=== PATIENT | female | born 1940 | race Caucasian/White ===

== ENCOUNTER 2018-01-22 11:16 | Emergency (ER) | payer MEDICARE, OTHER ==
[~2018-01-22 11:16] MED LIST: BENI40TA30 PO; CARV12.52 PO; LEXA10TA PO; OMEP20TA39 PO; PLAV75TA PO; SYNT125T PO
[2018-01-22 11:18] VITALS: BP 146/67; PULSE 75; RESP 16; TEMP 98.2; O2SAT 95
--- NOTE | 2018-01-22 12:00 | RADRPT ---
EXAM DATE/TIME: 01/22/2018 11:52 [facility] COMPARISON: CHEST PA & LAT, December 18, 2015, 10:57. INDICATIONS : Short of breath, jaw pain. MEDICAL HISTORY : Cardiovascular disease. Hypertension diabetes SURGICAL HISTORY : None. ENCOUNTER: Initial ACUITY: 1 day PAIN SCORE: 0/10 LOCATION: Bilateral chest FINDINGS: PA and lateral views of the chest demonstrate the lungs to be symmetrically aerated without evidence of mass, infiltrate or effusion. The cardiomediastinal contours are unremarkable. Osseous structure s are intact. CONCLUSION: The lungs are clear. Ming Flanagan MD on January 22, 2018 at 11:58 Board Certified Radiologist. This report was verified electronically.
[2018-01-22 12:22] LABS: AUTOMATED NEUTROPHIL # 6.6 TH/MM3 (1.8-7.7); BASOPHIL # 0.1 TH/MM3 (0-0.2); BASOPHIL % 0.6 % (0.0-2.0); EOSINOPHIL # 0.2 TH/MM3 (0-0.4); EOSINOPHIL % 2.8 % (0.0-4.0); HEMATOCRIT 39.6 % (35.0-46.0); HEMOGLOBIN 13.3 GM/DL (11.6-15.3); LYMPH % 16.2 % (9.0-44.0); LYMPHOCYTE # 1.4 TH/MM3 (1.0-4.8); MEAN CELL VOLUME 78.1 FL (80.0-100.0); MEAN CORPUSCULAR HEMOGLOBIN 26.3 PG (27.0-34.0); MEAN CORPUSCULAR HGB CONC 33.6 % (32.0-36.0); MEAN PLATELET VOLUME 7.6 FL (7.0-11.0); MONO % 5.1 % (0.0-8.0); MONOCYTE # 0.5 TH/MM3 (0-0.9); NEUT % 75.3 % (16.0-70.0); PLATELET COUNT 307 TH/MM3 (150-450); RED BLOOD COUNT 5.07 MIL/MM3 (4.00-5.30); WHITE BLOOD COUNT 8.7 TH/MM3 (4.0-11.0)
--- NOTE | 2018-01-22 12:31 | PD ---
HPI Chief Complaint: Respiratory Symptoms Time Seen by Provider: 12:07 Travel History International Travel<30 days: No Contact w/Intl Traveler<30days: No Traveled to known affect area: No History of Present Illness HPI This patient complains of numbness in the right side of her face. Duration 12 hours. Symptoms come and go. no Muscle weakness or headache or confusion or fever or head injury. She has some atypical chest symptoms in the sternal region. Symptoms are not exertional. They are affected by positional change. At some minor dyspnea also. She admittedly is very anxious. She is on anxiety medication. She takes Plavix daily. She said this was started after she had a spell of passing out Severity of symptoms is mild. No alleviating factors. 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 ) Psychiatric: No Respiratory: No Myocardial Infarction: No Thyroid Disease: Yes (THYROIDECTOMY) Ulcer: No Past Surgical History AICD: No Cholecystectomy: Yes Coronary Artery Bypass Graft: No Hysterectomy: Yes Joint Replacement: Yes (bilateral knee total arthroplasty x 2) Pacemaker: No Other Surgery: Yes (THYROIDECTOMY) Social History Alcohol Use: No Tobacco Use: No Substance Use: No Allergies-Medications (Allergen,Severity, Reaction): Coded Allergies: *MDRO Multi-Drug Resistant Organism (Verified Adverse Reaction, Unknown, ) MRSA (wound) 2005 Reported Meds & Prescriptions Reported Meds & Active Scripts Active Reported Hm Omeprazole (Omeprazole) 20 Mg Tab 20 Mg PO DAILY Carvedilol 12.5 mg (Carvedilol) 12.5 Mg Tab 1 Tab PO BID Lexapro (Escitalopram Oxalate) 10 Mg Tab 10 Mg PO DAILY Synthroid 125 mcg (Levothyroxine Sodium) 125 Mcg Tab 112 Mcg PO DAILY Plavix (Clopidogrel Bisulfate) 75 Mg Tab 75 Mg PO DAILY Benicar (Olmesartan) 40 Mg Tab 40 Mg PO DAILY Review of Systems General / Constitutional: No: Fever Eyes: No: Visual changes HENT: No: Headaches Cardiovascular: Positive: Chest Pain or Discomfort Respiratory: Positive: Shortness of Breath Gastrointestinal: No: Abdominal Pain Genitourinary: No: Dysuria Musculoskeletal: No: Pain Skin: No Rash Neurologic: Positive: Paresthesia, Sensory Disturbance, No: Weakness Psychiatric: No: Depression Endocrine: No: Polydipsia Hematologic/Lymphatic: No: Easy Bruising Physical Exam Narrative GENERAL: Well-nourished, well-developed patient in no apparent distress. SKIN: Focused skin assessment reveals no rash and nodules. Skin is Warm and dry. HEAD: Atraumatic. Normocephalic. EYES: Pupils equal and round. No scleral icterus. No injection or drainage. ENT: No nasal bleeding or discharge. Mucous membranes pink and moist. NECK: Trachea midline. No JVD. CARDIOVASCULAR: Regular rate and rhythm. No murmur appreciated. RESPIRATORY: No accessory muscle use. Clear to auscultation. Breath sounds equal bilaterally. GASTROINTESTINAL: Abdomen soft, non-tender, nondistended. Hepatic and splenic margins not palpable. MUSCULOSKELETAL: No obvious deformities. No clubbing. No cyanosis. No edema. NEUROLOGICAL: Awake and alert. No obvious cranial nerve deficits. Motor grossly within normal limits. Normal speech. Patient has subjective sensation throughout the right side of face PSYCHIATRIC: Appropriate mood and affect; insight and judgment normal. Data Data Last Documented VS Vital Signs Date Time Temp Pulse Resp B/P (MAP) Pulse Ox O2 Delivery O2 Flow Rate FiO2 01/22/18 11:18 98.2 75 16 146/67 (93) 95 Orders Orders Electrocardiogram (01/22/18 11:26) Basic Metabolic Panel (Bmp) (01/22/18 11:26) Ckmb (Isoenzyme) Profile (01/22/18 11:26) Complete Blood Count With Diff (01/22/18 11:26) Magnesium (Mg) (01/22/18 11:26) Prothrombin Time / Inr (Pt) (01/22/18 11:26) Act Partial Throm Time (Ptt) (01/22/18 11:26) Troponin I (01/22/18 11:26) Lipase (01/22/18 11:26) Chest, Pa & Lat (01/22/18 11:26) Ct Brain W/O Iv Contrast(Rout) (01/22/18 ) Labs Laboratory Tests Test 01/22/18 11:36 White Blood Count 8.7 TH/MM3 Red Blood Count 5.07 MIL/MM3 Hemoglobin 13.3 GM/DL Hematocrit 39.6 % Mean Corpuscular Volume 78.1 FL Mean Corpuscular Hemoglobin 26.3 PG Mean Corpuscular Hemoglobin Concent 33.6 % Red Cell Distribution Width 16.0 % Platelet Count 307 TH/MM3 Mean Platelet Volume 7.6 FL Neutrophils (%) (Auto) 75.3 % Lymphocytes (%) (Auto) 16.2 % Monocytes (%) (Auto) 5.1 % Eosinophils (%) (Auto) 2.8 % Basophils (%) (Auto) 0.6 % Neutrophils # (Auto) 6.6 TH/MM3 Lymphocytes # (Auto) 1.4 TH/MM3 Monocytes # (Auto) 0.5 TH/MM3 Eosinophils # (Auto) 0.2 TH/MM3 Basophils # (Auto) 0.1 TH/MM3 CBC Comment DIFF FINAL Differential Comment Prothrombin Time 10.7 SEC Prothromb Time International Ratio 1.1 RATIO Activated Partial Thromboplast Time 25.6 SEC Blood Urea Nitrogen 13 MG/DL Creatinine 0.67 MG/DL Random Glucose 143 MG/DL Calcium Level 9.8 MG/DL Magnesium Level 1.4 MG/DL Sodium Level 135 MEQ/L Potassium Level 4.1 MEQ/L Chloride Level 102 MEQ/L Carbon Dioxide Level 27.4 MEQ/L Anion Gap 6 MEQ/L Estimat Glomerular Filtration Rate 85 ML/MIN Total Creatine Kinase 37 U/L Troponin I LESS THAN 0.02 NG/ML Lipase 118 U/L [facility] Medical Decision Making Medical Screen Exam Complete: Yes Emergency Medical Condition: Yes Medical Record Reviewed: Yes Differential Diagnosis ACS, musculoskeletal chest pain, anxiety, TIA Narrative Course I have reviewed the patient's electronic medical record. Her chest x-ray is normal I reviewed her EKG which shows sinus rhythm without ACS changes IV placed CBC is normal metabolic profile is normal LFT's are normal lipase is normal ck is normal trop I is normal This patient has an atypical presentation with a lot of vague complaints. I do not see evidence of anything emergent happening. No suspicion of ACS or acute stroke. Brain CT is normal Patient has appointment with her primary care physician in exactly 80 minutes I believe she is stable to follow-up with her doctor And build upon what we have started here Diagnosis Primary Impression: Right facial numbness Additional Impressions: Chest pain Qualified Codes: R07.9 - Chest pain, unspecified Shortness of breath Anxious mood Additional Instructions: The patient was advised to follow up with their physician and return if they worsen. For this Med/Other Pt SpecificInfo: Other Disposition: 01 DISCHARGE HOME Condition: Stable Poncho Kim MD Jan 22, 2018 12:31
[2018-01-22 12:34] LABS: INTERNATIONAL NORMALIZED RATIO 1.1 RATIO; PROTHROMBIN TIME - PATIENT 10.7 SEC (9.8-11.6)
[2018-01-22 12:41] LABS: BICARBONATE 27.4 MEQ/L (21.0-32.0); BLOOD UREA NITROGEN 13 MG/DL (7-18); CALCIUM 9.8 MG/DL (8.5-10.1); CHLORIDE 102 MEQ/L (98-107); CREATININE 0.67 MG/DL (0.50-1.00); GLOMERULAR FILTRATION RATE 85 ML/MIN (>89); GLUCOSE,RANDOM 143 MG/DL (74-106); MAGNESIUM 1.4 MG/DL (1.5-2.5); SODIUM (NA) 135 MEQ/L (136-145)
[2018-01-22 12:46] LABS: TROPONIN I LESS THAN 0.02 NG/ML (0.02-0.05)
--- NOTE | 2018-01-22 13:05 | RADRPT ---
EXAM DATE/TIME: 01/22/2018 12:50 [facility] COMPARISON: CT BRAIN W/O CONTRAST, February 04, 2016, 9:54. INDICATIONS : Right facial numbness. RADIATION DOSE: 42.50 CTDIvol (mGy) MEDICAL HISTORY : Cardiovascular disease. Hypertension. SURGICAL HISTORY : Cholecystectomy. Thyroidectomy. ENCOUNTER: Initial ACUITY: 1 day PAIN SCALE: 0/10 LOCATION: cranial TECHNIQUE: Multiple contiguous axial images were obtained of the head. Using automated exposure control and adj ustment of the mA and/or kV according to patient size, radiation dose was kept as low as reasonably a chievable to obtain optimal diagnostic quality images. DICOM format image data is available electro nically for review and comparison. FINDINGS: There is patchy mild diminished attenuation deep white matter structures which appears grossly stable . There is no evidence of intracranial mass or hemorrhage. There is nothing to suggest acute infarcti on. The ventricles are symmetric and normal. Extracranial structures are benign and intact. CONCLUSION: Stable brain. No acute findings. Edmundo Nazario MD on January 22, 2018 at 13:01 Board Certified Radiologist. This report was verified electronically.
--- NOTE | 2018-01-22 14:57 | EKG ---
Date Performed: 01/22/2018 Time Performed: 11:32:48 PTAGE: 77 years EKG: Sinus rhythm POSSIBLE LEFT ATRIAL ENLARGEMENT MARKED LEFT AXIS DEVIATION MINIMAL ST DEPRESSION ABNORMAL ECG PREVIOUS TRACING : 04/08/2016 11.39 DOCTOR: Grabiel Sanders Interpretating Date/Time 01/22/2018 14:56:08
== END 2018-01-22 14:55 | disposition home or self-care (01) ==
LOC: NEPC 11:16
DX: R20.0 Anesthesia of skin (principal); R07.9 Chest pain, unspecified; R06.02 Shortness of breath; F41.9 Anxiety disorder, unspecified; R94.31 Abnormal electrocardiogram [ECG] [EKG]; E78.00 Pure hypercholesterolemia, unspecified; E11.9 Type 2 diabetes mellitus without complications; M19.90 Unspecified osteoarthritis, unspecified site; I10 Essential (primary) hypertension; Z86.73 Personal history of transient ischemic attack (TIA), and cerebral infarction without residual deficits; Z79.02 Long term (current) use of antithrombotics/antiplatelets
CPT/HCPCS: 70450; 71046; 80048; 82550; 83690; 83735; 84484; 85025; 85610; 85730; 93005